=== PATIENT | male | born 2000 | race Caucasian/White ===

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

== ENCOUNTER → 2023-01-25 | Outpatient (CLI) | payer BC ==
--- NOTE | 2023-01-25 12:10 | FL ---
ESOPHOGRAM. HISTORY: Dysphagia Esophagram was performed per the air contrast technique. The patient swallowed barium and effervesce nt crystals without difficulty or delay. There is dilatation of the esophagus with luminal narrowing at the GE junction. 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 On delayed views there is pooling of contrast within the dilated esophagus. Subsequently single contrast cervical esophagram was performed which fails demons trate evidence for aspiration penetration or mass. 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
== END | disposition home or self-care (01) ==
LOC: RADUSWWP 11:05
PROVIDERS: ATTEND Internal Medicine Gastroenterology
DX: K22.89 Other specified disease of esophagus (principal); R13.10 Dysphagia, unspecified; K22.0 Achalasia of cardia
CPT/HCPCS: 74220